=== PATIENT | female | born 1980 | race African-American/Black ===

== ENCOUNTER 2016-08-25 00:48 | Emergency (ER) | payer OTHER ==
[2016-08-25 02:16] VITALS: BP 115/75
== END 2016-08-25 02:16 | disposition home or self-care (01) ==
LOC: ED 00:48
DX: M54.5 Low back pain (principal); I10 Essential (primary) hypertension; E78.00 Pure hypercholesterolemia, unspecified; G89.29 Other chronic pain; Z88.1 Allergy status to other antibiotic agents; Z88.8 Allergy status to other drugs, medicaments and biological substances
CPT/HCPCS: J1170; Q0162

== ENCOUNTER 2016-10-22 15:00 | Emergency (ER) | payer OTHER ==
[2016-10-22] MEDS ORDERED: TOPROL XL25 MG (21:24)
[2016-10-22] MEDS ORDERED: DEPAKOTE500 MG (21:24)
[2016-10-22] MEDS ORDERED: TOPAMAX15 MG (21:24)
[2016-10-22] MEDS ORDERED: ZIA10 (21:25)
[2016-10-22] MEDS ORDERED: CATAPRES0.1 MG (21:25)
[2016-10-22] MEDS ORDERED: AMLODIPINE BES2.5 M1 (21:25)
[2016-10-22 21:56] VITALS: BP 172/103
== END 2016-10-22 21:56 | disposition home or self-care (01) ==
LOC: ED 15:00
DX: G43.909 Migraine, unspecified, not intractable, without status migrainosus (principal); I10 Essential (primary) hypertension; E66.9 Obesity, unspecified; Z88.5 Allergy status to narcotic agent; Z88.1 Allergy status to other antibiotic agents; Z88.8 Allergy status to other drugs, medicaments and biological substances; Z88.6 Allergy status to analgesic agent
CPT/HCPCS: J1200; J2060; J2270; J2550; J2765; J3490; J7030

== ENCOUNTER 2017-01-21 20:40 | Emergency (ER) | payer OTHER ==
[~2017-01-21 20:40] MED LIST: AMLODIPINE BES2.5 M1; CATAPRES0.1 MG; DEPAKOTE500 MG; TOPAMAX15 MG; TOPROL XL25 MG; ZIA10
[2017-01-21 23:32] VITALS: BP 160/106
== END 2017-01-21 23:32 | disposition home or self-care (01) ==
LOC: ED 20:40
DX: I10 Essential (primary) hypertension (principal); R51 Headache; Z88.1 Allergy status to other antibiotic agents; Z88.5 Allergy status to narcotic agent; Z88.8 Allergy status to other drugs, medicaments and biological substances; Z79.899 Other long term (current) drug therapy
CPT/HCPCS: J1200; J2270; J2765; Q0162

== ENCOUNTER 2017-03-09 03:11 | Emergency (ER) | payer OTHER ==
[~2017-03-09] VITALS: Ht 165.1 cm; Wt 118.8 kg
[2017-03-09 05:17] VITALS: BP 173/109
== END 2017-03-09 05:25 | disposition home or self-care (01) ==
LOC: ED 03:11
DX: G43.909 Migraine, unspecified, not intractable, without status migrainosus (principal); I10 Essential (primary) hypertension; Z88.1 Allergy status to other antibiotic agents; Z88.8 Allergy status to other drugs, medicaments and biological substances; E78.00 Pure hypercholesterolemia, unspecified; Z79.899 Other long term (current) drug therapy
CPT/HCPCS: J1170; J2550; Q0163

== ENCOUNTER 2017-09-20 18:32 | Emergency (ER) | payer OTHER ==
[~2017-09-20] VITALS: Ht 165.1 cm; Wt 130.8 kg
[2017-09-20 18:40] VITALS: Ht 165.1 cm; Wt 130.8 kg
[2017-09-20 20:52] VITALS: BP 169/96
== END 2017-09-20 20:52 | disposition home or self-care (01) ==
LOC: ED 18:32
DX: G43.909 Migraine, unspecified, not intractable, without status migrainosus (principal); I10 Essential (primary) hypertension; E78.00 Pure hypercholesterolemia, unspecified; Z88.1 Allergy status to other antibiotic agents; Z88.6 Allergy status to analgesic agent; Z88.5 Allergy status to narcotic agent
CPT/HCPCS: J0780; J1200; J3010; Q0162

== ENCOUNTER 2017-11-22 03:03 | Emergency (ER) | payer OTHER ==
[~2017-11-22] VITALS: Ht 162.6 cm; Wt 126.1 kg
[2017-11-22 03:35] VITALS: Ht 162.6 cm; Wt 126.1 kg
[2017-11-22 09:48] VITALS: BP 146/110
== END 2017-11-22 09:48 | disposition home or self-care (01) ==
LOC: ED 03:03
DX: K08.89 Other specified disorders of teeth and supporting structures (principal); G43.909 Migraine, unspecified, not intractable, without status migrainosus; I10 Essential (primary) hypertension
CPT/HCPCS: J2270; J2550

== ENCOUNTER 2018-04-22 19:18 | Emergency (ER) | payer OTHER ==
[~2018-04-22] VITALS: Ht 162.6 cm; Wt 104.8 kg
[2018-04-22 19:25] VITALS: Ht 162.6 cm; Wt 104.8 kg
[2018-04-22 22:59] VITALS: BP 179/106
== END 2018-04-22 22:59 | disposition home or self-care (01) ==
LOC: ED 19:18
DX: G43.909 Migraine, unspecified, not intractable, without status migrainosus (principal); E78.00 Pure hypercholesterolemia, unspecified; F41.9 Anxiety disorder, unspecified; Z88.8 Allergy status to other drugs, medicaments and biological substances; Z88.1 Allergy status to other antibiotic agents; Z88.6 Allergy status to analgesic agent; Z88.5 Allergy status to narcotic agent; Z90.89 Acquired absence of other organs
CPT/HCPCS: J1100; J2270; J2765

== ENCOUNTER 2018-08-02 18:12 | Emergency (ER) | payer OTHER ==
[~2018-08-02] VITALS: Ht 165.1 cm; Wt 131.1 kg
[2018-08-02 18:40] VITALS: Ht 165.1 cm; Wt 131.1 kg
[2018-08-02 23:47] VITALS: BP 137/88
== END 2018-08-02 23:47 | disposition home or self-care (01) ==
LOC: ED 18:12
DX: G43.909 Migraine, unspecified, not intractable, without status migrainosus (principal); E78.00 Pure hypercholesterolemia, unspecified; F41.9 Anxiety disorder, unspecified; Z90.89 Acquired absence of other organs; Z88.1 Allergy status to other antibiotic agents; Z88.5 Allergy status to narcotic agent; Z88.6 Allergy status to analgesic agent
CPT/HCPCS: J1200; J2270; Q0162

== ENCOUNTER 2018-09-29 16:00 | Emergency (ER) | payer OTHER ==
[~2018-09-29] VITALS: Ht 167.6 cm; Wt 131.1 kg
[2018-09-29 16:04] VITALS: Ht 167.6 cm; Wt 131.1 kg
[2018-09-29 20:15] VITALS: BP 158/82
== END 2018-09-29 20:15 | disposition home or self-care (01) ==
LOC: ED 16:00
DX: G43.909 Migraine, unspecified, not intractable, without status migrainosus (principal); I10 Essential (primary) hypertension; E78.00 Pure hypercholesterolemia, unspecified; F41.9 Anxiety disorder, unspecified; Z90.89 Acquired absence of other organs; Z88.1 Allergy status to other antibiotic agents; Z88.5 Allergy status to narcotic agent
CPT/HCPCS: J2270; J2765

== ENCOUNTER 2019-03-13 08:42 | Emergency (ER) | payer OTHER ==
[~2019-03-13] VITALS: Ht 165.1 cm; Wt 118.4 kg
[2019-03-13 08:45] VITALS: Ht 165.1 cm; Wt 118.4 kg
[2019-03-13 12:17] VITALS: BP 189/121
== END 2019-03-13 12:17 | disposition home or self-care (01) ==
LOC: ED 08:42
DX: I10 Essential (primary) hypertension (principal); G43.909 Migraine, unspecified, not intractable, without status migrainosus; Z76.0 Encounter for issue of repeat prescription; Z90.49 Acquired absence of other specified parts of digestive tract; Z88.5 Allergy status to narcotic agent; Z88.1 Allergy status to other antibiotic agents; Z88.6 Allergy status to analgesic agent
CPT/HCPCS: J2270

== ENCOUNTER 2019-04-25 18:59 | Emergency (ER) | payer OTHER ==
[~2019-04-25] VITALS: Ht 167.6 cm; Wt 108.9 kg
[2019-04-25 19:32] VITALS: Ht 167.6 cm; Wt 108.9 kg
[2019-04-25 20:54] LABS: BASOPHIL % 0.8 % (0-2)
[2019-04-25 20:56] LABS: PLATELET COUNT 514 x10^3mcL (130-400); RED CELL DISTRIBUTION WIDTH 14.9 % (11.5-14.5)
[2019-04-25 21:15] LABS: CARBON DIOXIDE 21.9 mmol/L (21-32); CHLORIDE SERUM 107 mmol/L (98-107); CREATININE SERUM 0.8 mg/dL (0.6-1.0); GFR1 > 60 mL/min; GLUCOSE SERUM 99 mg/dL (74-106); POTASSIUM SERUM 3.6 mmol/L (3.5-5.1); SODIUM SERUM 140 mmol/L (136-145)
[2019-04-25 21:19] LABS: ALKALINE PHOSPHATASE 103 U/L (46-116); ALT/SGPT 22 U/L (14-59); AST/SGOT 16 U/L (15-37); BILIRUBIN TOTAL 0.2 mg/dL (0.20-1.00); LIPASE 137 IU/L (73-393); TOTAL PROTEIN, SERUM 7.5 g/dL (6.4-8.2)
[2019-04-25 21:21] LABS: ALBUMIN 3.1 g/dL (3.4-5.0)
[2019-04-25 22:27] LABS: microscopic required? NO
[2019-04-25 22:55] LABS: urine erythrocyte NEGATIVE (NEGATIVE)
[2019-04-26 00:14] VITALS: BP 140/98
== END 2019-04-26 | disposition home or self-care (01) ==
LOC: ED 18:59
PROVIDERS: Emergency Medicine
DX: R10.10 Upper abdominal pain, unspecified (principal); K56.699 Other intestinal obstruction unspecified as to partial versus complete obstruction; I10 Essential (primary) hypertension; G43.909 Migraine, unspecified, not intractable, without status migrainosus; E78.00 Pure hypercholesterolemia, unspecified; Z88.1 Allergy status to other antibiotic agents; Z93.3 Colostomy status; Z88.5 Allergy status to narcotic agent
CPT/HCPCS: 36415; J2405; J2550; J3010; J7030; Q0162

== ENCOUNTER 2019-10-09 09:28 | Emergency (ER) | payer OTHER ==
[~2019-10-09] VITALS: Ht 167.6 cm; Wt 94.3 kg
[2019-10-09 09:42] VITALS: Ht 167.6 cm; Wt 94.3 kg
[2019-10-09] MEDS ORDERED: LOPRESSOR100 M1 PO (09:59)
[2019-10-09] MEDS ORDERED: ADALAT CC90 MG PO (09:59)
[2019-10-09] MEDS ORDERED: CLONIDINE HYDR0.1 M1 PO (10:01)
[2019-10-09] MEDS ORDERED: MAXALT10 M1 PO ×2 (10:01)
[2019-10-09 10:47] VITALS: BP 123/81
== END 2019-10-09 10:47 | disposition home or self-care (01) ==
LOC: ED 09:28
DX: G43.909 Migraine, unspecified, not intractable, without status migrainosus (principal); I10 Essential (primary) hypertension; F41.9 Anxiety disorder, unspecified; E66.9 Obesity, unspecified; E78.00 Pure hypercholesterolemia, unspecified; Z76.0 Encounter for issue of repeat prescription; Z68.33 Body mass index [BMI] 33.0-33.9, adult; Z88.1 Allergy status to other antibiotic agents; Z88.6 Allergy status to analgesic agent; Z88.8 Allergy status to other drugs, medicaments and biological substances; Z98.890 Other specified postprocedural states